=== PATIENT | female | born 1945 | race Caucasian/White ===

== ENCOUNTER → 2018-09-13 | Outpatient (CLI) | payer MEDICARE, OTHER, SELFPAY ==
[2016-04-21 07:26] VITALS: BMI 40.2
--- NOTE | 2018-09-13 | EMB_PTH ---
PATIENT: TAN HU LOC: [facility] U#:[id number] AGE/SX: 72/F ROOM: RE09/13/[address]: Dr. Josh Kline MD : [id number] BED: DIS: 09/13/2018 SPEC #: [id number] RECD: 09/13/18 14:23 STATUS: SHIRA REQ #: [id number] EVY: 09/13/18 00:[address]: Josh Kline DEPT: SURGICAL PATHOLOGY RECD BY: Aric Bautista ENTERED: 09/13/18 14:23 SP TYPE: ENDOM BX/C JAYASHREE DR: Dr. German Leach MD Tissues: Endometrium, NOS Procedures: Surgery Specimen Level IV HEADER OPERATION: Endometrial biopsy PRE-OP DIAGNOSIS: Postmenopausal bleeding TISSUE SUBMITTED: Endometrium MICROSCOPIC DIAGNOSIS Endometrial biopsy: Scant superficial fragments of inactive endometrial tissue with focal eosinophilic syncytial change. No endometrial polyp or endometrial hyperplasia is identified. CE:maggi 09/14/18 MICROSCOPIC DESCRIPTION Slides are reviewed. GROSS DESCRIPTION Received in fixative is one container labeled with the patient's name and designated endometrium. The specimen consists of scant reddish-brown fragments of soft tissue measuring in aggregate 0.3 x 0.1 x 0.1 cm. Also received within the same specimen container is adherent reddish-brown clotted blood measuring 1 x 1 x 0.2 cm. The specimen is totally submitted in one cassette. / CE:maggi 09/13/18 TC:5 [facility]: [id number]
== END | disposition home or self-care (01) ==
LOC: LABSPEC 14:05
PROVIDERS: Family Provider Family Medicine; PCP Family Medicine; Referring Provider Obstetrics & Gynecology; Visit Provider Obstetrics & Gynecology
DX: N95.0 Postmenopausal bleeding (principal)
CPT/HCPCS: 88305

== ENCOUNTER → 2018-10-27 | Outpatient (CLI) | payer MEDICARE, OTHER, SELFPAY ==
--- NOTE | 2018-10-27 12:42 | CT_ITS ---
STUDY: CT ABDOMEN AND PELVIS WITH CONTRAST REASON FOR EXAM: Female, 73 years old. 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 RADIATION DOSAGE (If Supplied By Facility): CTDIvol = ( 17.08 ) mGy, DLP = ( 1261.41 ) mGycm TECHNIQUE: Transaxial images were obtained from the dome of the diaphragm to the symphysis pubis without oral contrast. 100 IV Isovue 300 was administered. Sagittal and coronal images were reconstructed. Individualized dose optimization techniques were used for this CT. COMPARISON: None. FINDINGS: The visualized lung bases are unremarkable. The visualized portions of the heart are within normal limits. Elongated right lobe of the liver is 20 cm in height, and the left lobe extends into the anterior left upper quadrant. The patent portal vein diameter is 13.5 mm. There are surgical clips in the gallbladder fossa consistent with a prior cholecystectomy. The diameter of the common bile duct in the head of the pancreas is 4.5 mm. There are several small benign calcified granulomata of the spleen. Normal pancreas. Normal bilateral adrenal glands. Well-defined 2.75 x 2.6 x 2.75 cm cortical cyst seen in the lateral lower pole of the right kidney. Normal left kidney. No hydronephrosis. Normal visualized stomach. Normal small intestine. There are multiple sigmoid colon diverticula consistent with diverticulosis. There is non-visualization of the appendix. There is diffuse atherosclerotic plaquing of the abdominal aorta, with moderate calcification but without a demonstrated aneurysm. Normal inferior vena cava. The right common iliac vein diameter is 1.47 x 1.6 cm, while the left is 1.2 x 1.67 cm. There are no venous varices in the left retroperitoneum or left upper thigh. Normal retroperitoneum. Normal urinary bladder. Globular appearing, perhaps retroflexed uterus. There is venous congestion in the left adnexa, and the left gonadal vein is dilated to 9.5 mm There is a small umbilical hernia containing fat. There is a right-sided inguinal hernia containing adipose tissue. There are multilevel degenerative changes of the visualized lower lumbar spine as well as degenerative arthrosis at the pubic symphysis. CT/Abdomen/Pelvis WITH Contrast IMPRESSION: 1. Aortoiliac atherosclerotic calcific plaquing. No demonstrated aneurysm. 2. The iliac veins and inferior vena cava are unremarkable, arguing against significant left pelvic floor left lower extremity venous occlusive disease. Incidental note made, however, of left gonadal vein reflux and left adnexal venous congestion. 3. Mild hepatomegaly. 4. Prior cholecystectomy. 5. 2.5 cm lower pole cortical cyst of the right kidney. No hydronephrosis. 6. Sigmoid diverticulosis without acute diverticulitis. 7. Small, fat-containing umbilical and right inguinal hernias. Electronically Signed: Jae White MD at 17:03 EDT , Service support ,
== END | disposition home or self-care (01) ==
LOC: CT 12:38
PROVIDERS: Family Provider Family Medicine; PCP Family Medicine; Referring Provider Surgery Vascular Surgery; Visit Provider Surgery Vascular Surgery
DX: I87.1 Compression of vein (principal)
CPT/HCPCS: 74177; Q9967

== ENCOUNTER → 2019-04-06 11:58 | Outpatient (CLI) | payer MEDICARE, OTHER, SELFPAY ==
--- NOTE | 2019-04-06 12:01 | US_ITS ---
HISTORY: UTI. Renal mass. EXAMINATION: US Kidney(s) complete (eg, kidneys and bladder) TECHNIQUE: Hubbard scale and color doppler images were obtained of the kidneys. COMPARISON: CT scan of the abdomen and pelvis is from October 27, 2018 76 images FINDINGS: RIGHT KIDNEY: Measures 100.6 x 4.1 x 5.2 cm in length. No hydronephrosis. No nephrolithiasis. Within the inferior pole the right kidney is an anechoic structure with well-defined margins measuring 2.6 x 2.3 x 2.8 cm, consistent with a benign cyst, and not significantly changed since the most recent CT scan. LEFT KIDNEY: Measures 11.3 x 4.4 x 5.8 cm in length. No focal parenchymal mass, hydronephrosis, nephrolithiasis, or perinephric fluid collection is noted. URINARY BLADDER: Mostly decompressed. Bladder volume is estimated prevoid at 179 cc. Bladder volume postvoid is estimated at 25 cc. US/Kidney and Bladder IMPRESSION: Negative renal ultrasound. at 0611 Reported and signed by: Johny Fajardo MD Electronically Signed: Johny Fajardo MD at 6:10 EST Tel , Service support ,
== END ==
PROVIDERS: Family Provider Family Medicine; PCP Family Medicine; Referring Provider Urology; Visit Provider Urology
DX: N28.89 Other specified disorders of kidney and ureter (principal)
CPT/HCPCS: 76770

== ENCOUNTER → 2021-03-10 09:08 | Outpatient (CLI) | payer MEDICARE, OTHER, SELFPAY ==
--- NOTE | 2021-03-12 08:42 | PFT ---
INTRODUCTION: The patient is a 75-year-old female that presents for pulmonary function studies secondary to a diagnosis of chronic cough. Respiratory therapy reported good patient effort. Bronchodilators were used during testing. INTERPRETATION: Forced expiration spirometry demonstrates no evidence of a large airways obstructive ventilatory defect. There was no significant response to aerosolized bronchodilators. Spirograms are of good quality and plateau normally. Body plethysmography was performed and reveals lung volumes to be within normal limits. Diffusing capacity by single breath CO is reduced at 62% of predicted. IMPRESSION: Isolated mild reduction in diffusing capacity.
== END ==
PROVIDERS: PCP Family Medicine; Referring Provider Internal Medicine Critical Care Medicine; Visit Provider Internal Medicine Critical Care Medicine
DX: R05.3 Chronic cough (principal)
CPT/HCPCS: 94060; 94726; 94729

== ENCOUNTER → 2021-03-12 08:03 | Outpatient (CLI) | payer MEDICARE, OTHER, SELFPAY ==
[2021-03-12 08:36] VITALS: PULSE 71; PULSE 79; PULSE 88; PULSE 90; PULSE 94; PULSE 95; O2SAT 90; O2SAT 91; O2SAT 92; O2SAT 93; O2SAT 94; O2SAT 95
--- NOTE | 2021-03-13 07:41 | PCM.PSN.6M ---
PSN 6 Minute Walk Test 6 Minute Walk Test 6 Minute Walk Test: 6 Minute Walk Test PSN:6-Minute Walk Test Start: 03/12/21 08:36 Freq: Status: Active Protocol: RESP.6MINW Document 03/12/21 08:36 KINA (Rec: 03/12/21 08:47 KINA [id number]) 6 Minute Walk Test Date Performed 03/12/21 Time Performed 08:15 Height 5 ft 4 in Weight: 108.862 kg Weight in Pounds 240.[address]: Sidney Machado Pre-test Oxygen Delivery Method Room Air Pulse Ox (%) 94 Pulse Rate (60-100 beats/min) 71 Dyspnea Marvin Scale (0-10) 3 Exertion Marvin Scale (6-20) 6 1st minute Oxygen Delivery Method Room Air Pulse Ox (%) 94 Pulse Rate (60-100 beats/min) 88 2nd minute Oxygen Delivery Method Room Air Pulse Ox (%) 90 Pulse Rate (60-100 beats/min) 90 3rd minute Oxygen Delivery Method Room Air Pulse Ox (%) 91 Pulse Rate (60-100 beats/min) 94 4th minute Oxygen Delivery Method Room Air Pulse Ox (%) 90 Pulse Rate (60-100 beats/min) 94 5th minute Oxygen Delivery Method Room Air Pulse Ox (%) 92 Pulse Rate (60-100 beats/min) 95 6th minute Oxygen Delivery Method Room Air Pulse Ox (%) 93 Pulse Rate (60-100 beats/min) 95 Dyspnea Marvin Scale (0-10) 3 Exertion Marvin Scale (6-20) 12 Post-test Oxygen Delivery Method Room Air Pulse Ox (%) 95 Pulse Rate (60-100 beats/min) 79 Full Laps Walked 12 Partial Lap, Number of Tiles Walked 25 Total Distance Walked (ft) 733 Interpretation Interpretation: The patient ambulated 733 feet over the course of 6 minutes beginning on room air without assistive devices. Pretesting oxygen saturation was noted to be 94% on room air. With ambulation, the cailin oxygen saturation was 90%. There was no significant exertional oxygen desaturation. Recommendations Recommendations: There is no indication for the use of supplemental oxygen at this time.
== END ==
PROVIDERS: PCP Family Medicine; Referring Provider Internal Medicine Critical Care Medicine; Visit Provider Internal Medicine Critical Care Medicine
DX: R60.0 Localized edema (principal)
CPT/HCPCS: 94618

== ENCOUNTER → 2023-10-28 | Outpatient (CLI) | payer MEDICARE, OTHER, SELFPAY | END | disposition home or self-care (01) | LOC: PSN 12:49 | PROVIDERS: PCP Family Medicine; Referring Provider Nurse Practitioner Acute Care; Visit Provider Nurse Practitioner Acute Care | DX: R06.02 Shortness of breath (principal) | CPT/HCPCS: 94060; 94726; 94729 ==

== ENCOUNTER → 2023-11-14 | Outpatient (CLI) | payer MEDICARE, OTHER, SELFPAY ==
[2023-11-14 13:48] VITALS: PULSE 67; PULSE 73; PULSE 79; PULSE 93; PULSE 95; PULSE 96; O2SAT 92; O2SAT 93; O2SAT 94; O2SAT 95; O2SAT 96
--- NOTE | 2023-11-15 10:16 | PCM.PSN.6M ---
PSN 6 Minute Walk Test 6 Minute Walk Test 6 Minute Walk Test: 6 Minute Walk Test PSN:6-Minute Walk Test Start: 11/14/23 13:48 Freq: Status: Active Protocol: RESP.6MINW Document 11/14/23 13:48 GUILLERMINA (Rec: 11/14/23 13:53 JASMINAON [id number]) 6 Minute Walk Test Date Performed 11/14/23 Time Performed 13:30 Height 5 ft 3 in Weight: 220 lb Weight in Pounds 220.[address]: Cherie Teresa [employer] Assistive device used: None Pre-test Oxygen Delivery Method Room Air Pulse Ox (%) 93 Pulse Rate (60-100 beats/min) 67 Dyspnea Marvin Scale (0-10) 0.5 Exertion Marvin Scale (6-20) 6 1st minute Oxygen Delivery Method Room Air Pulse Ox (%) 94 Pulse Rate (60-100 beats/min) 79 2nd minute Oxygen Delivery Method Room Air Pulse Ox (%) 95 Pulse Rate (60-100 beats/min) 93 3rd minute Oxygen Delivery Method Room Air Pulse Ox (%) 92 Pulse Rate (60-100 beats/min) 93 4th minute Oxygen Delivery Method Room Air Pulse Ox (%) 95 Pulse Rate (60-100 beats/min) 96 5th minute Oxygen Delivery Method Room Air Pulse Ox (%) 95 Pulse Rate (60-100 beats/min) 95 6th minute Oxygen Delivery Method Room Air Pulse Ox (%) 94 Pulse Rate (60-100 beats/min) 96 Dyspnea Marvin Scale (0-10) 3 Exertion Marvin Scale (6-20) 13 Post-test Oxygen Delivery Method Room Air Pulse Ox (%) 96 Pulse Rate (60-100 beats/min) 73 Full Laps Walked 15 Partial Lap, Number of Tiles Walked 9 Total Distance Walked (ft) 894 Interpretation Interpretation: The patient ambulated 894 feet over the course of 6 minutes beginning on room air without assistive devices. Pretesting oxygen saturation was noted to be 93% on room air. With ambulation, the cailin oxygen saturation was 92%. There was no significant exertional oxygen desaturation. Recommendations Recommendations: There is no indication for the use of supplemental oxygen at this time.
== END | disposition home or self-care (01) ==
PROVIDERS: PCP Family Medicine; Referring Provider Nurse Practitioner Acute Care; Visit Provider Nurse Practitioner Acute Care
DX: R06.02 Shortness of breath (principal)
CPT/HCPCS: 94618

== ENCOUNTER → 2023-12-21 | Outpatient (CLI) | payer MEDICARE, OTHER, SELFPAY ==
--- NOTE | 2023-12-21 14:57 | US_ITS ---
STUDY: RENAL ULTRASOUND - COMPLETE REASON FOR EXAM: Female, 78 years old. RENAL CYST TECHNIQUE: Ultrasound evaluation of the kidneys was performed with real-time and static martell-scale imaging. COMPARISON: CT scan 10/27/2018, ultrasound 04/06/2019. FINDINGS: RIGHT KIDNEY: Normal location of the right kidney, which is normal in size. The right kidney measures 10.8 x 5.2 x 3.9 cm. There is a normal cortex of the right kidney. The renal cortex measures 1.4 cm. There is a 3.2 cm right lower pole simple cyst. There are no right renal calculi. There is no right hydronephrosis. DISTAL RIGHT URETER: There is non-visualization of the distal right ureter. There is no demonstrated right ureterovesical junction calculus. There is no demonstrated right ureteral jet. LEFT KIDNEY: Normal location of the left kidney, which is normal in size. The left kidney measures 11.4 x 4.6 x 4.1 cm. There is a normal cortex of the left kidney. The renal cortex measures 1.1 cm. There is no left renal mass or cyst. There are no left renal calculi. There is an extra-renal pelvis of the left kidney. There is no distention of the renal calyces. DISTAL LEFT URETER: There is non-visualization of the distal left ureter. There is no demonstrated left ureterovesical junction calculus. There is a visualized left ureteral jet. BLADDER: The distended urinary bladder has a volume of 138 ml. There is a normal wall thickness of the distended urinary bladder. There is no demonstrated mass within the urinary bladder. There are no demonstrated bladder calculi. US/Kidney and Bladder IMPRESSION: No definite acute or significant abnormality seen. There is a 3.2 cm simple right renal cyst which has been stable since 2019 and does not need any further evaluation or follow-up. Electronically Signed: Kale Carbone MD at 22:56 EDT ,
== END | disposition home or self-care (01) ==
LOC: US 14:55
PROVIDERS: PCP Family Medicine; Referring Provider Urology; Visit Provider Urology
DX: N28.1 Cyst of kidney, acquired (principal)
CPT/HCPCS: 76770